=== PATIENT | male | born 1955 | race Caucasian/White ===

== ENCOUNTER 2016-06-20 11:26 | Outpatient (CLI) | payer MEDICARE, MEDICAID ==
[2014-06-20 09:07] VITALS: BMI 26.1
--- NOTE | ~2016-06-20 | HEMODYNAMI ---
PATIENT:DARYL SERRANO MEDICAL RECORD: [id number] : 57 LOCATION:[place] ADMISSION DATE: 06/20/16 Generatedon:06/20/201616:11 Patient name: DARYL SERRANO Patient #: [id number] SSN: : 1955 Date of study: 06/20/2016 Page: Of Hemodynamic Procedure Report Patient Data Patient Demographics Procedure consent was obtained First Name: DARYL Gender: Male Last Name: MAGGIE : 1955 [facility] Initial: R Age: 61 year(s) Patient #: [id number] Race: Additional ID: [id number] Contact details Address: [address] [place] [address] [address] State: [place] City: [place] Zip code: [address] Past Medical History Allergies Allergen Reaction Date Comments Reported Other allergy 06/13/2014 Albuterol, Codeine, Blueberry Codeine 06/20/2016 Admission Admission Data Admission Date: 06/20/2016 Admission Time: 11:26 Lab Results Lab Result Date: 06/20/2016 Lab Result Time: 11:50 Biochemistry Name Units Result Min Max BUN mg/dl 7 --(*---)-- 7 18 Creatinine mg/dl 0.9 --(-*--)-- 0.6 1.3 CBC Name Units Result Min Max Hematocrit % 45.4 --(-*--)-- 42 54 Hemoglobin g/dl 14.8 --(-*--)-- 13.5 17.5 Procedure Procedure Types Cath Procedure Diagnostic Procedure LHC LHC w/Coronaries w/Grafts PCI Procedure Coronary Stent Initial Miscellaneous Procedures Moderate Sedation up to 15 minutes Procedure Description Procedure Date Procedure Date: 06/20/2016 Procedure Start Time: 15:52 Procedure End Time: 16:10 Procedure Staff Name Function Jose Cao MD Performing Physician Jeri Juarez RT Scrub Niko Laird RN Nurse Jed Chamberlain RT Monitor Procedure Data Cath Procedure Fluoroscopy Diagnostic fluoroscopy Total fluoroscopy Time: 3.9 time: 3.9 min min Diagnostic fluoroscopy Total fluoroscopy dose: 808 dose: 808 mGy mGy Contrast Material Contrast Material Type Amount (ml) Isovue 300 160 Entry Location Entry Primary Successful Side Size Upsize Upsize Entry Closure Succes sful Closure Location (Fr) 1 (Fr) 2 (Fr) Remarks Device Remarks Femoral Right 5 Fr 6 Fr Exoseal artery Short Estimated blood loss: 10 ml Diagnostic catheters Device Type Used For End Catheter Placement Cordis 5Fr Pigtail Procedure Catheter (MP) Cordis 5Fr JL 4.0 Procedure Catheter (MP) Cordis 5Fr 3DRC Catheter Procedure (MP) Diagnostic Infinity 5Fr Procedure AR 2 MOD catheter Procedure Complications No complications Procedure Medications Medication Administration Route Dosage Oxygen NC 2 l/min Heparin Flush Bag added to field 2 bags (1000units/500ml NS) 0.9% NaCl I.V. 100 ml/hr Fentanyl I.V. 50 mcg Versed I.V. 1 mg Fentanyl I.V. 50 mcg Versed I.V. 1 mg Heparin Bolus I.V. 4000 units Hemodynamics Rest HGB: 14.8 (g/dl) Heart Rate: 67 (bpm) Snapshots Pre Cath Intra NCS Post Cath Vital Signs Time Heart Resp SPO2 NIBP Rhythm Pain Sedation Rate (ipm) (%) (mmHg) Status Level (bpm) 15:32:31 70 18 97 125/73(95) NSR 0 (11) 10(A) , No pain 15:36:43 63 19 96 101/65(73) NSR 0 (11) 10(A) , No pain 15:40:51 64 18 96 104/62(83) NSR 0 (11) 10(A) , No pain 15:45:03 63 18 96 93/59(72) NSR 0 (11) 10(A) , No pain 15:49:11 64 16 96 98/54(76) NSR 0 (11) 10(A) , No pain 15:53:19 74 17 95 97/60(74) NSR 0 (11) 9(A) , No pain 15:57:25 54 18 96 109/65(75) NSR 0 (11) 9(A) , No pain 16:01:39 63 17 95 100/57(80) NSR 0 (11) 9(A) , No pain 16:05:48 66 17 96 95/56(66) NSR 0 (11) 9(A) , No pain 16:09:56 66 18 96 103/61(73) NSR 0 (11) 9(A) , No pain Medications Time Medication Route Dose Verified Delivered Reason Notes Effectiveness by by 15:34:03 Oxygen NC 2 Niko Niko Per physician l/min Eitan Laird RN RN 15:34:12 Heparin Flush added 2 Niko Niko used for Bag to bags Eitan Laird RN procedure (1000units/500ml field RN NS) 15:34:26 0.9% NaCl I.V. 100 Niko Niko Per physician ml/hr Eitan Laird RN RN 15:51:11 Fentanyl I.V. 50 Niko Niko for sedation mcg Eitan Laird RN RN 15:51:17 Versed I.V. 1 mg Niko Niko for sedation Eitan aLird RN RN 16:00:38 Fentanyl I.V. 50 Niko Niko for sedation mcg Eitan Laird RN RN 16:00:40 Versed I.V. 1 mg Niko Niko for sedation Eitan Laird RN RN 16:00:48 Heparin Bolus I.V. 4000 Niko Niko for units Eitan Laird RN anticoagulation food scientist Log Time Note 15:11:54 Niko Laird RN sent for patient. Start room use. 15:28:00 Time tracking: Regular hours 15:28:04 Plan of Care:Hemodynamics will remain stable., Cardiac rhythm will remain stable., Comfort level will be maintained., Respiratory function will remain adequate., Patient/ family verbilizes understanding of procedure., Procedure tolerated without complication., Recovers from procedure without complications.. 15:28:13 Patient received from ED to CCL 2 Alert and oriented. Tansferred to table in Supine position. 15:28:14 Warm blankets applied, and jae hugger turned on for patient comfort. 15:28:14 Correct patient and procedure confirmed by team. 15:28:16 Signed procedure consent form obtained from patient. 15:28:17 ECG and BP/O2 sat monitors applied to patient. 15:28:18 Full Disclosure recording started 15:31:26 Vital chart was started 15:32:02 Rhythm: sinus rhythm 15:32:08 H&P Date Dictated: 06/20/2016 Emergent; H&P N/A. 15:32:09 Pre-procedure instructions explained to patient. 15:32:09 Pre-op teaching completed and patient verbalized understanding. 15:32:11 Family in waiting room. 15:32:12 Patient NPO since Midnight. 15:32:26 Patient allergic to Codeine 15:32:30 Is the patient allergic to Iodine/contrast media? No. 15:32:32 Is patient on blood thinner?Yes 15:32:35 ACC The patient was administered the following blood thiners within the last 24 hours: ACCPlavix 15:32:59 Loaded on Plavix at 1300 in ER. 15:33:03 Patient diabetic? No. 15:33:15 Previous problem with sedation/anesthesia? No ? 15:33:16 Snore? Yes 15:33:17 Sleep apnea? Yes 15:33:18 Deviated septum? No 15:33:19 Opens mouth fully? Yes 15:33:19 Sticks out tongue? Yes 15:33:23 Airway obstruction? Yes COPD 15:33:28 Dentures? No ? 15:33:39 Pre procedure: right dorsailis pedis pulse 1+ Palpable, but thready & weak; easily obliterated 15:33:42 Patient pain scale 0/10 ?. 15:33:44 Lab results completed and on chart. 15:33:47 Right groin area was prepped with chlora-prep and draped in sterile fashion 15:33:47 Alarms reviewed by R. N. 15:33:48 Sharps counted by scrub and verified by R.N. 15:33:53 Use device set Femoral Dx 15:33:54 Tegaderm 4 x 4 opened to sterile field. 15:33:55 Acist Hand Control opened to sterile field. 15:33:56 Acist Manifold opened to sterile field. 15:33:57 Acist Syringe opened to sterile field. 15:33:57 Bag Decanter opened to sterile field. 15:33:58 Medline Cath Pack opened to sterile field. 15:33:58 Terumo 5Fr [place] Sheath opened to sterile field. 15:33:59 St Dane 260cm J .035 wire opened to sterile field. 15:34:00 Diagnostic Infinity 5Fr Multipack catheter opened to sterile field. 15:34:03 Oxygen 2 l/min NC was administered by Niko Laird RN; Per physician; 15:34:12 Heparin Flush Bag (1000units/500ml NS) 2 bags added to field was administered by Niko Laird RN; used for procedure; 15:34:26 0.9% NaCl 100 ml/hr I.V. was administered by Niko Laird RN; Per physician; :: Lab Result : BUN 7 mg/dl :: Lab Result : Creatinine 0.9 mg/dl 15:: Lab Result : Hemoglobin 14.8 g/dl 15:: Lab Result : Hematocrit 45.4 % 15:42:24 Zero performed for pressure channel P1 15:43:07 Baseline sample Acquired. 15:50:27 --------ALL STOP TIME OUT------ 15:50:28 Final Timeout: patient, procedure, and site verified with staff and physician. All members of the team are in agreement. 15:50:30 Right groin site verified by team. 15:50:33 Physical assessment completed. ASA score P 2 - A patient with mild systemic disease as per Jose Cao MD. 15:50:36 Sedation plan: IV Moderate Sedation Versed, Fentanyl 15:51:11 Fentanyl 50 mcg I.V. was administered by Niko Laird RN; for sedation; 15:51:17 Versed 1 mg I.V. was administered by Niko Laird RN; for sedation; 15:52:15 Procedure started. 15:52:17 Local anesthetic to right femoral artery with Lidocaine 2% by Jose Cao MD.INITIAL ACCESS ONLY 15:52:26 A 5 Fr sheath was inserted into the Right Femoral artery 15:53:05 A Cordis 5Fr Pigtail Catheter (MP) was advanced over the wire and used for Procedure. 15:53:18 LV gram done using DAVIES 15:53:20 Injector settings: Ml/sec: 10, Volume: 20, 15:54:34 EF : 50 % 15:54:35 Catheter exchanged over wire. 15:54:40 A Cordis 5Fr JL 4.0 Catheter (MP) was advanced over the wire and used for Procedure. 15:55:12 LCA angiography performed. 15:55:38 Merit BasixCompak Inflation Kit opened to sterile field. 15:55:38 Terumo 6Fr [place] Sheath opened to sterile field. 15:55:39 Yen Whisper J 300cm 0.014 guide wire opened to sterile field. 15:55:44 Catheter removed. 15:55:47 A Cordis 5Fr 3DRC Catheter (MP) was advanced over the wire and used for Procedure. 15:56:48 JEONG to LAD angiography performed. 15:58:09 RCA angiography performed. 15:58:12 Catheter removed. 15:58:16 A Diagnostic Infinity 5Fr AR 2 MOD catheter was advanced over the wire and used for Procedure. 15:58:38 SVG to Circ angiography performed. 15:59:09 Catheter removed. 15:59:15 Cordis 6FR XBLAD 3.5 guide catheter opened to sterile field. 15:59:36 Sheath upsized to a 6 Fr Short. 15:59:56 6 Fr xblad 3.5 guide catheter was inserted over the wire 16:00:38 Fentanyl 50 mcg I.V. was administered by Niko Laird RN; for sedation; 16:00:40 Versed 1 mg I.V. was administered by Niko Laird RN; for sedation; 16:00:48 Heparin Bolus 4000 units I.V. was administered by Niko Laird RN; for anticoagulation; 16:01:09 whisper wire advanced. 16:02:24 Wire advanced across lesion. 16:02:40 Inflation Number: 1 A Medtronic Integrity 2.5 X 12 stent was prepped and advanced across the Mid LAD. The stent was deployed at 13 MICHAEL for 0:10 (min:sec). 16:03:18 Stent catheter was removed intact over wire. 16:03:19 Wire removed. 16:03:20 Guide catheter removed. 16:03:25 Cordis 6Fr Exoseal opened to sterile field. 16:03:37 Sheath removed intact; hemostasis achieved with Exoseal to the Right Femoral artery. 16:03:39 Procedure ended.(Physican Out) 16:04:47 Fluoroscopy time 03.90 minutes. 16:04:51 Flurop Dose total: 808 16:04:51 Fluoroscopy dose: 808 mGy 16:04:56 Contrast amount:Isovue 300 160ml. 16:04:57 Sharps counted by scrub and verified by R.N. 16:05:02 Insertion/operative site no bleeding no hematoma. 16:05:05 Post-op/insertion site Right Femoral artery dressed using a 4 x 4 and Tegaderm. 16:05:13 Post right femoral artery:stable, soft, clean and dry 16:05:18 Post Procedure Pulses reassessed and unchanged 16:05:21 Post-procedure physical assessment completed. ASA score P 2 - A patient with mild systemic disease as per Jose Cao MD. 16:05:23 Post procedure rhythm: unchanged. 16:05:26 Estimated blood loss: 10 ml 16:05:27 Post procedure instruction explained to patient.Patient verbalizes understanding. 16:05:35 Patient needs reinforcement of post procedure teaching. 16:05:47 Procedure type changed to Cath procedure, Diagnostic procedure, LHC, LHC w/Coronaries w/Grafts, PCI procedure, Coronary Stent Initial, Miscellaneous Procedures, Moderate Sedation up to 15 minutes 16:10:26 Procedure and supply charges have been captured, reviewed, submitted and are correct. 16:10:28 Procedure Complication : No complications 16:10:30 Vital chart was stopped 16:10:31 See physician's report for complete and final results. 16:10:31 See physician's report for complete and final results. 16:10:32 Report given to Pre/Post Procedure Room. 16:10:35 Patient transfered to Pre/Post Procedure Room with Stretcher. 16:10:37 Procedure ended. 16:10:37 Full Disclosure recording stopped 16:11:06 End room use (Document Last) Intervention Summary Intervention Notes Time ActionType Lesion and Equipment Action# Pressure Duration Attributes Used 16:02:40 Place stent Mid LAD Medtronic 1 13 00:10 Integrity 2.5 X 12 stent Device Usage Item Name Manufacture Quantity Catalog Hospital Part Current Minimal L ot# / Number Charge Number Stock Stock Serial# Code Tegaderm 4 1 1626W 225044 293167 323549 5 x 4 Acist Hand Acist 1 23851 872512 155684 663400 5 Control Medical Systems Inc Acist Acist 1 81250 202777 182251 785042 5 Manifold Medical Systems Inc Acist Acist 1 67140 483239 598006 782763 20 Syringe Medical Systems Inc Bag Microtek 1 2001S 104637 46500 173211 5 QR Artist. Medline Cardinal 1 [id number] 165416 01793 150203 5 Cath Pack Health Terumo 5Fr Terumo 1 [id number] 847617 714436 317748 [address] Dane 1 488703 353197 781431 841799 30 260cm J .035 wire Diagnostic Cardinal 1 TX5168 779431 18029 749682 30 Infinity Health 5Fr Multipack catheter Cordis 5Fr Cardinal 1 871900 5 Pigtail Health Catheter (MP) Cordis 5Fr Cardinal 1 814975 5 JL 4.0 Health Catheter (MP) Merit [facility] 1 TO9902 481180 171446 604265 15 BasixUnified Medical Inflation Kit Terumo 6Fr Terumo 1 [id number] 510617 406773 761474 40 [place] Sheath Yen Yen 1 [id number] 600122 301849 540532 5 Whisper J Vascular 300cm 0.014 guide wire Cordis 5Fr Cardinal 1 108072 5 3DRC Health Catheter (MP) Diagnostic Cardinal 1 [id number] 843087 745691 350029 20 Infinity Health 5Fr AR 2 MOD catheter Cordis 6FR Cardinal 1 [id number] 464171 032774 731254 10 XBLAD 3.5 Health guide catheter Medtronic Medtronic 1 [id number] 397051 770460 749999 3 0 [id number] Integrity 2.5 X 12 stent Cordis 6Fr Cardinal 1 EX600 523584 906406 026174 10 [facility] Teamly Signature Audit [place] Stage Time Signature Unsigned Intra-Procedure 06/20/2016 Jed Chamberlain 4:11:18 PM RT(R) Signatures Monitor : Jed Chamberlain RT Signature : Date : Time : [facility] [address] [place] [address]
[~2016-06-20 11:26] MED LIST: ASPIRIN325 MG PO; ASPIRIN81 MG PO; BETAPACE 120 M120 MG PO; CALCIUM 600+D T1 TA1 PO; CORDARONE200 MG PO; CRESTOR10 MG PO; FLOMAX0.4 MG PO; K-DUR20 MEQ PO; LASIX40 MG PO; LITHIUM CARBON300 MG PO; LOPRESSOR25 MG PO; MULTI-DAY VITAM1 TAB PO; NORCO 10/325 TA1 TA1 PO; PLAVIX75 MG PO; PROAIR HFA8.5 GM INH; RISPERDAL2 MG PO; SYMBICORT 16010.2 GM INH
[2016-06-20 12:11] LABS: BASOPHILS 0.1 % (0-2); EOSINOPHILS 2.5 % (0-7); HEMATOCRIT 45.4 % (42.0-54.0); HEMOGLOBIN 14.8 g/dL (13.5-17.5); IMMATURE GRANULOCYTES 0.1 % (0-5); LYMPHOCYTES 11.6 % (15-50); MCH 29.8 pg (26.0-34.0); MCHC 32.6 g/dL (31.0-37.0); MCV 91.3 fL (80.0-100.0); MEAN PLATELET VOLUME 11.5 fL (7.4-10.4); MONOCYTES 8.4 % (2-11); NEUTROPHILS 77.3 % (40-80); PLATELET COUNT 164 10x3/uL (130-400); RBC 4.97 10x6/uL (4.20-6.10); RDW 13.7 % (11.5-14.5); WBC 13.5 10x3/uL (4.8-10.8)
[2016-06-20 12:21] LABS: ALBUMIN 3.6 g/dL (3.4-5.0); ALKALINE PHOSPHATASE 81 U/L (46-116); ALT (SGPT) 24 U/L (10-68); BILIRUBIN - TOTAL 0.59 mg/dL (0.2-1.3); CALC OSMOLALITY 275 mosm/kg (275-300); CALCIUM 9.8 mg/dL (8.5-10.1); CARBON DIOXIDE 30.7 mmol/L (21.0-32.0); CHLORIDE - SERUM 105 mmol/L (98-107); CREATININE - SERUM 0.9 mg/dL (0.6-1.3); GLUCOSE 102 mg/dL (74-106); POTASSIUM - SERUM 4.1 mmol/L (3.5-5.1); PROTEIN - SERUM 7.5 g/dL (6.4-8.2); SODIUM 139 mmol/L (136-145); UREA NITROGEN 7 mg/dL (7-18); eGFR NON AFRICAN AMERICAN > 90 mL/min (90-120)
[2016-06-20 12:35] LABS: CHOL - HDL RATIO 2.7 ratio (2.3-4.9); CHOLESTEROL, TOTAL 116 mg/dL (0-200); CKMB 0.4 U/L (0.0-3.6); CREATINE KINASE 52 UL (21-232); HDL CHOLESTEROL 43 mg/dL (32-96); LDL CHOLESTEROL 43 mg/dL (0-100); TRIGLYCERIDE 150 mg/dL (30-200)
[2016-06-20 12:36] LABS: TROPONIN-I < 0.017 ng/mL (0.000-0.060)
--- NOTE | 2016-06-20 16:30 | NUR ---
resting, right groin cdi, no hematoma or bleeding noted, soft to touch
--- NOTE | 2016-06-20 17:00 | NUR ---
no change in right groin, vss, alone at this time, urinal used-200cc out. denies furthur needs
--- NOTE | 2016-06-20 19:50 | NUR ---
IV D'C WITH CATH TIP INTACT, WRITTEN AND VERBAL INSTRUCTIONS GIVEN TO PT. DENIES PAIN AT THIS TIME. AWAITING PARENTS TO DRIVE HOME.
--- NOTE | 2016-06-20 20:00 | NUR ---
PARENTS AT FRONT DOOR-TRANSPORT VIA WC TO CAR, D'C INSTRUCTIONS GIVEN TO PARENTS AND INFORMED ALL OF IMPORTANCE OF GETTING PLAVIX RX FILLED AND START TOMORROW. VERBAL UNDERSTANDING NOTED
--- NOTE | 2016-06-21 16:36 | OP ---
PATIENT NAME: DARYL SERRANO MEDICAL RECORD: [id number] :57 LOCATION:D.CAT ADMISSION DATE: SURGEON: MAKAYLA SWAN MD DATE OF OPERATION: 06/20/2016 PROCEDURES: 1. PTCA stent LAD. 2. Left heart catheterization. 3. Selective coronary angiography. 4. Vein graft angiography. 5. Left ventriculogram. INDICATIONS: Angina and coronary artery disease. PROCEDURE IN DETAIL: After informed consent was obtained and after a detailed explanation of the risks, benefits as well as alternative therapies, the patient elected to proceed with angiogram and angioplasty. The right femoral area was prepped and draped in normal sterile fashion. The right femoral artery was cannulated via modified Seldinger technique with placement of 6-Ecuadorean sheath. All catheters exchanged through this sheath. FINDINGS: The left ventriculogram was performed in standard 30-degree DAVIES view, reveals good cardiac wall motion throughout all segments. Overall ejection fraction 50%. SELECTIVE CORONARY ANGIOGRAPHY: 1. Left main showed no significant angiographic disease. 2. Left anterior descending has previously placed stents, these are widely patent; however, there is a 70%-75% stenosis in the distal vessel. 3. JEONG to the LAD is closed. 4. Left circumflex has 80% stenosis in the proximal vessel. 5. Vein graft to the circumflex is widely patent. 6. The right coronary has previously placed stents; these are widely patent with no significant restenosis. No disease elsewise. 7. The vein graft to the RCA is closed. PTCA STENT OF THE MORON[place] LAD: The stent used was a 2.5 x 12 mm Integrity. Result was 0% residual stenosis. OVERALL IMPRESSION: Successful percutaneous transluminal coronary angioplasty stent of the left anterior descending going from 70%-75% initial stenosis to 0% residual. TRANSINT:[id number] Voice Confirmation ID: [id number] DOCUMENT ID: [id number] MAKAYLA SWAN MD at 1636 CC: [id number] DICTATION DATE: 06/20/16 1607 PANEL SEWER: 06/21/16 0100 DEP CLI 06/20/16 [place] [address]
== END 2016-06-20 20:00 | disposition home or self-care (01) ==
LOC: D.ER 11:26 → D.CATH 11:26 → EDSTATUS 13:00 → D.CATH 20:00
PROVIDERS: Emergency Medicine
DX: I25.119 Atherosclerotic heart disease of native coronary artery with unspecified angina pectoris (principal); Z01.812 Encounter for preprocedural laboratory examination; R94.31 Abnormal electrocardiogram [ECG] [EKG]

== ENCOUNTER → 2016-09-11 19:02 | Outpatient (CLI) | payer MEDICARE, MEDICAID ==
[2014-06-20 09:07] VITALS: BMI 26.1
== END | disposition home or self-care (01) ==
LOC: D.SLEEP 08:00
DX: G47.33 Obstructive sleep apnea (adult) (pediatric) (principal)

== ENCOUNTER 2016-11-02 10:08 | Observation (INO) | payer MEDICARE, MEDICAID ==
[~2016-11-02] VITALS: Ht 185.4 cm; Wt 88.6 kg
--- NOTE | ~2016-11-02 | OP ---
PATIENT NAME: DARYL SERRANO MEDICAL RECORD: [id number] :57 LOCATION:D. D.2123 ADMISSION DATE:11/02/16 SURGEON: JOSE R VELEZ MD DATE OF OPERATION: 11/03/2016 PROCEDURE: Left heart catheterization, selective coronary angiography, right femoral approach. CATHETERS: A 5-Portuguese sheath, 5/4 left and right Shira, 5/4 pig. The procedure was well tolerated and the patient returned to the cosby. Sheath removed. ExoSeal device was placed. FINDINGS: Left ventriculography in 30-degree DAVIES view, normal wall motion and normal systolic function. CORONARY ANATOMY. LEFT MAIN: Left main is free of disease. LAD: LAD has an area of previous stenting, widely patent throughout its course with no progression of togiak disease. CIRCUMFLEX: Circumflex is totally occluded in its distal portion. RIGHT CORONARY ARTERY: Right coronary artery has area of previous stenting, widely patent without evidence of restenosis or progression of togiak disease. SAPHENOUS VEIN GRAFT: Saphenous vein graft to the circ is widely patent. It fills the AV groove, circ in retrograde fashion as well. IMPRESSION: Suspect chest pain due to chronic obstructive pulmonary disease exacerbation, this has indicated. TRANSINT:[id number] Voice Confirmation ID: [id number] DOCUMENT ID: [id number] JOSE R VELEZ MD CC: [id number] DICTATION DATE: 11/03/16 1022 IMPORT CLERK: 11/03/16 1306 ADM IN [facility] [address] [place] [address]
--- NOTE | ~2016-11-02 | HEMODYNAMI ---
PATIENT:DARYL SERRANO MEDICAL RECORD: [id number] : 57 [id number] ADMISSION DATE: 11/02/16 Generatedon:11/03/201610:21 Patient name: DARYL SERRANO Patient #: [id number] SSN: : 1955 Date of study: 11/03/2016 Page: Of Hemodynamic Procedure Report Patient Data Patient Demographics Procedure consent was obtained First Name: DARYL Gender: Male Last Name: MAGGIE : 1955 Middle Initial: R Age: 61 year(s) Patient #: [id number] Race: Additional ID: [id number] Contact details [address]: [address] [place] [address] [address] State: [place] City: [place] Zip code: [address] Past Medical History Allergies Allergen Reaction Date Comments Reported Other allergy 06/13/2014 Albuterol, Codeine, Blueberry Codeine 06/20/2016 Other allergy 11/03/2016 albuterol Codeine 11/03/2016 Admission Admission Data Admission Date: 11/02/2016 Admission Time: 12:35 Room #: D.2123 Procedure Procedure Types Cath Procedure Diagnostic Procedure LHC LHC w/Coronaries w/Grafts Miscellaneous Procedures Moderate Sedation up to 15 minutes Procedure Description Procedure Date Procedure Date: 11/03/2016 Procedure Start Time: 10:10 Procedure End Time: 10:20 Procedure Staff Name Function Robin Gale MD Performing Physician Misty Pinedo RT Scrub Prosper Urena RN Nurse Jeri Juarez RT Monitor Procedure Data Cath Procedure Fluoroscopy Diagnostic fluoroscopy Total fluoroscopy Time: 1.3 time: 1.3 min min Diagnostic fluoroscopy Total fluoroscopy dose: 506 dose: 506 mGy mGy Contrast Material Contrast Material Type Amount (ml) Isovue 300 54 Entry Location Entry Primary Successful Side Size Upsize Upsize Entry Closure Succes sful Closure Location (Fr) 1 (Fr) 2 (Fr) Remarks Device Remarks Femoral Right 5 Fr Exoseal artery Estimated blood loss: 5 ml Diagnostic catheters Device Type Used For End Catheter Placement Cordis 5Fr JL 4.0 Left Coronary Catheter (MP) Angiography Cordis 5Fr 3DRC Catheter Right Coronary (MP) Angiography Cordis 5Fr 3DRC Catheter SVG Angiography (MP) Cordis 5Fr Pigtail LV Angiography Catheter (MP) Procedure Complications No complications Procedure Medications Medication Administration Route Dosage Oxygen NC 2 l/min Lidocaine 2% added to field 20 Heparin Flush Bag added to field 2 bags (1000units/500ml NS) 0.9% NaCl I.V. 100 ml/hr Versed I.V. 1 mg Fentanyl I.V. 50 mcg Versed I.V. 1 mg Fentanyl I.V. 50 mcg Solumedrol I.V. 125 mg Hemodynamics Rest Heart Rate: 52 (bpm) Pressure Samples Time Site Value (mmHg) Purpose Heart Use Rate(bpm) 10:15 LV 80/2,9 EDP 59 Gradients Valve Time Site Site Mean SEP/DFP Peak To Heart Use 1 2 (mmHg) (sec/min) Peak Rate (mmHg) (bpm) Aortic 10:16 LV AO 53 Snapshots Pre Cath Intra NCS Post Cath Vital Signs Time Heart Resp SPO2 etCO2 [id number] NIBP Rhythm Pain Sedation Rate (ipm) (%) (mmHg) (mmHg) (mmHg) Status Level (bpm) 9:57:20 47 15 98 0 0 111/62(91) NSR 0 (11) 10(A) , No pain 10:02:04 51 13 97 0 0 97/57(73) NSR 0 (11) 10(A) , No pain 10:06:47 48 15 97 0 0 101/57(78) NSR 0 (11) 10(A) , No pain 10:11:32 48 15 97 0 0 105/54(83) NSR 0 (11) 9(A) , No pain 10:16:12 54 16 96 0 0 87/54(71) NSR 0 (11) 9(A) , No pain 10:20:51 55 15 96 0 0 101/57(69) NSR 0 (11) 10(A) , No pain Medications Time Medication Route Dose Verified Delivered Reason Notes Effe ctiveness by by 9:58:35 Oxygen NC 2 Robin Cheng used for l/min St. Keanu Urena RN procedure 9:59:32 Lidocaine 2% added 20ml Robin Robin for local to vial St. Keanu Gale anesthetic field MD ACKERMAN 9:59:39 Heparin Flush added 2 Robin Buffie used for Bag to bags St. Keanu Urena straightening press operator (1000units/500ml field ACKERMAN NS) 9:59:50 0.9% NaCl I.V. 100 Robin Cheng Per ml/hr St. Keanu Urena RN physician 10:06:41 Versed I.V. 1 mg Robin Hiltonie for [facility]. Keanu Urena RN sedation 10:06:46 Fentanyl I.V. 50 Robin Lidaie for mcg [facility] Keanu Urena RN sedation 10:10:43 Versed I.V. 1 mg Robin [address]ie for [facility]. Keanu Urena RN sedation 10:10:47 Fentanyl I.V. 50 Robin Hiltonie for mcg [facility]. Keanu Urena RN sedation 10:17:47 Solumedrol I.V. 125 Robin Cheng Per mg [facility]. Keanu Urena RN physician Procedure Log Time Note 9:46:44 Diagnostic Cath status Elective 9:46:46 Prosper Urena RN sent for patient. Start room use. 9:55:49 Time tracking: Call back 9:55:58 Plan of Care:Hemodynamics will remain stable., Cardiac rhythm will remain stable., Comfort level will be maintained., Respiratory function will remain adequate., Patient/ family verbilizes understanding of procedure., Procedure tolerated without complication., Recovers from procedure without complications.. 9:56:06 Patient received from PCU to CCL 1 Alert and oriented. Tansferred to table in Supine position. 9:56:07 Warm blankets applied, and jae hugger turned on for patient comfort. 9:56:10 Correct patient and procedure confirmed by team. 9:56:11 Signed procedure consent form obtained from patient. 9:56:12 ECG and BP/O2 sat monitors applied to patient. 9:56:12 Full Disclosure recording started 9:56:20 Vital chart was started 9:58:31 Baseline sample Acquired. 9:58:35 Oxygen 2 l/min NC was administered by Prosper Urena RN; used for procedure; 9:58:35 Rhythm: sinus bradycardia 9:58:42 H&P Date Dictated: 11/03/2016 Within 30 days and on chart.. 9:58:44 Pre-procedure instructions explained to patient. 9:58:44 Pre-op teaching completed and patient verbalized understanding. 9:58:47 Family in patients room. 9:58:49 Patient NPO since Midnight. 9:59:06 Patient allergic to Other allergyalbuterol 9:59:09 Patient allergic to Codeine 9:59:13 Is the patient allergic to Iodine/contrast media? No. 9:59:20 Is patient on blood thinner?No 9:59:25 Patient diabetic? No. 9:59:29 Previous problem with sedation/anesthesia? No ? 9:59:30 Snore? Yes 9:59:32 Lidocaine 2% 20ml vial added to field was administered by Robin Gale MD; for local anesthetic; 9:59:32 Sleep apnea? Yes 9:59:33 Deviated septum? No 9:59:34 Opens mouth fully? Yes 9:59:35 Sticks out tongue? Yes 9:59:39 Heparin Flush Bag (1000units/500ml NS) 2 bags added to field was administered by Prosper Urena RN; used for procedure; 9:59:40 Airway obstruction? Yes COPD 9:59:46 Dentures? Yes In 9:59:49 Pre procedure: right dorsailis pedis pulse 2+ Normal; easily identifiable; not easily obliterated 9:59:50 0.9% NaCl 100 ml/hr I.V. was administered by Prosper Urena RN; Per physician; 9:59:50 Patient pain scale 0/10 ?. 9:59:57 IV patent on arrival in left forearm with 0.9% NaCl at [facility]. 10:00:05 Lab results completed and on chart. 10:00:07 Right groin area was prepped with chlora-prep and draped in sterile fashion 10:00:08 Alarms reviewed by R. N. 10:00:09 Sharps counted by scrub and verified by R.N. 10:00:13 Use device set Femoral Dx 10:00:14 Acist Syringe opened to sterile field. 10:00:14 Bag Decanter opened to sterile field. 10:00:15 Medline Cath Pack opened to sterile field. 10:00:15 Terumo 5Fr Lodge Grass Sheath opened to sterile field. 10:00:15 St Dane 260cm J .035 wire opened to sterile field. 10:00:16 Acist Hand Control opened to sterile field. 10:00:17 Acist Manifold opened to sterile field. 10:00:17 Diagnostic Infinity 5Fr Multipack catheter opened to sterile field. 10:00:17 Tegaderm 4 x 4 opened to sterile field. 10:06:21 Final Timeout: patient, procedure, and site verified with staff and physician. All members of the team are in agreement. 10:06:23 Right groin site verified by team. 10:06:25 Physical assessment completed. ASA score P 2 - A patient with mild systemic disease as per Robin Gale MD. 10:06:28 Sedation plan: IV Moderate Sedation Versed, Fentanyl 10:06:41 Versed 1 mg I.V. was administered by Prosper Urena RN; for sedation; 10:06:46 Fentanyl 50 mcg I.V. was administered by Prosper Urena RN; for sedation; 10:10:17 Zero performed for pressure channel P1 10:10:22 Procedure started. 10:10:25 Local anesthetic to right femoral artery with Lidocaine 2% by Robin Gale MD.INITIAL ACCESS ONLY 10:10:32 A 5 Fr sheath was inserted into the Right Femoral artery 10:10:43 Versed 1 mg I.V. was administered by Prosper Urena RN; for sedation; 10:10:47 Fentanyl 50 mcg I.V. was administered by Prosper Urena RN; for sedation; 10:11:07 A Cordis 5Fr JL 4.0 Catheter (MP) was advanced over the wire and used for Left Coronary Angiography. 10:12:45 Catheter removed. 10:12:51 A Cordis 5Fr 3DRC Catheter (MP) was advanced over the wire and used for Right Coronary Angiography. 10:14:15 A Cordis 5Fr 3DRC Catheter (MP) was advanced over the wire and used for SVG Angiography.to CIRC 10:14:17 Catheter removed. 10:15:06 A Cordis 5Fr Pigtail Catheter (MP) was advanced over the wire and used for LV Angiography. 10:15:41 LV gram done using DAVIES 10:15:42 LV hemodynamics recorded. 10:15:45 Injector settings: Ml/sec: 7, Volume: 15, 10:15:51 EF : 55 % 10:16:06 Catheter removed. 10:16:12 Cordis 5Fr Exoseal opened to sterile field. 10:16:23 Sheath removed intact; hemostasis achieved with Exoseal to the Right Femoral artery. 10:16:25 Procedure ended.(Physican Out) 10:16:33 Fluoroscopy time 01.30 minutes. 10:16:36 Flurop Dose total: 506 10:16:36 Fluoroscopy dose: 506 mGy 10:16:39 Contrast amount:Isovue 300 54ml. 10:16:40 Sharps counted by scrub and verified by R.N. 10:16:41 Insertion/operative site no bleeding no hematoma. 10:16:45 Post-op/insertion site Right Femoral artery dressed using a 4 x 4 and Tegaderm. 10:16:48 Post right femoral artery:stable, clean and dry 10:16:51 Post Procedure Pulses reassessed and unchanged 10:16:55 Post-procedure physical assessment completed. ASA score P 2 - A patient with mild systemic disease as per Robin Gale MD. 10:16:57 Post procedure rhythm: unchanged. 10:17:01 Estimated blood loss: 5 ml 10:17:02 Post procedure instruction explained to patient.Patient verbalizes understanding. 10:17:02 Patient needs reinforcement of post procedure teaching. 10:17:17 Procedure type changed to Cath procedure, Diagnostic procedure, LHC, LHC w/Coronaries w/Grafts, Miscellaneous Procedures, Moderate Sedation up to 15 minutes 10:17:23 Procedure Complication : No complications 10:17:24 Procedure and supply charges have been captured, reviewed, submitted and are correct. 10:17:26 See physician's report for complete and final results. 10:17:47 Solumedrol 125 mg I.V. was administered by Prosper Urena RN; Per physician; 10:20:18 Report given to PCU. 10:20:19 Vital chart was stopped 10:20:26 Patient transfered to PCU with Bed. 10:20:28 Procedure ended. 10:20:28 Full Disclosure recording stopped 10:20:31 End room use (Document Last) Device Usage Item Name Manufacture Quantity Catalog Hospital Part Current Minimal Lo t# / Number Charge Number Stock Stock Serial# Code Acist Acist 1 41539 [id number] [id number] [id number] 20 Syringe [employer] Inc Bag Microtek 1 2002S 857800 99967 514045 5 Open [employer] Inc. Medline Cardinal 1 [id number] 349001 04350 994229 5 Cath Pack Health Terumo 5Fr Terumo 1 HAL269 296357 966813 630077 [address] St Dane 1 164507 351084 237801 385169 30 260cm J .035 wire Acist Hand Acist 1 91934 266299 758447 539149 5 Control Medical [employer] Inc Acist Acist 1 45983 480312 727484 731282 5 Manifold Medical Systems Inc Diagnostic Cardinal 1 [id number] 988770 42666 746870 30 Infinity Health 5Fr Multipack catheter Tegaderm 4 3M 1 1626W 176251 335841 628520 5 x 4 Cordis 5Fr Cardinal 1 607898 5 JL 4.0 Health Catheter (MP) Cordis 5Fr Cardinal 1 018963 5 3DRC Health Catheter (MP) Cordis 5Fr Cardinal 1 952475 5 Pigtail Health Catheter (MP) Cordis 5Fr Cardinal 1 EX500 785237 433548 174135 10 [facility] BIXI Signature Audit [place] Stage Time Signature Unsigned Intra-Procedure 11/03/2016 Jeri 10:21:46 AM Counts RT(R) Signatures Monitor : Jeri Signature : Counts RT Date : Time : [place] [id number] [facility] [place] [address]
--- NOTE | ~2016-11-02 | HP ---
PATIENT: DARYL SERRANO MEDICAL RECORD: [id number] ACCOUNT: [id number] LOCATION:[address] : 57 ADMISSION DATE: 11/02/16 HISTORY AND PHYSICAL EXAMINATION HISTORY OF PRESENT ILLNESS: A 61-year-old gentleman with known history of coronary artery disease, status post coronary bypass grafting, he has history of most recently in June of this year stenting to the [place] LAD, admitted with chest pain over the past 2 days. Additionally, he has had some worsening of his underlying obstructive pulmonary disease, questionable was more of a strain or true restenosis or progression of [place] disease. We were asked to see him concerning his cardiovascular status. PAST MEDICAL HISTORY: Includes: 1. History of hypertension. 2. Obstructive pulmonary disease. 3. Coronary artery disease as described above. 4. Dyslipidemia. 5. Paroxysmal atrial fibrillation. 6. Bipolar disorder. 7. Hypothyroidism on replacement. ALLERGIES: CODEINE AND ALBUTEROL. MEDICATIONS: Include Synthroid 100 mcg q. day, Singulair 10 q.h.s., Symbicort 1 puff b.i.d., Risperdal 2 mg b.i.d., lithium 450 b.i.d., aspirin 81 q. day, sotalol 120 b.i.d., Crestor 10 q. day, Ranexa 1 gram b.i.d., and albuterol q.6. SOCIAL HISTORY: He lives currently independently. He is a nonsmoker, nondrinker. He is able to take care of his ADLs. No set exercise program. . REVIEW OF SYSTEMS: The patient reports easy bruising but reports no swollen glands. The patient reports no fever, no night sweats, no significant weight gain, no significant weight loss. No significant exercise tolerance. The patient reports no dry eyes, no irritation, no vision change. Patient reports no difficulty hearing and no ear pain. Patient reports no frequent nose bleeds or nose and sinus problems. Patient reports on arm pain on exertion. No shortness of breath while lying down. No history of heart murmur. Patient reports no cough, no wheezing or coughing up blood. Patient reports no abdominal pain, no vomiting. Normal appetite. No diarrhea and not vomiting blood. No nausea and no constipation. Patient reports no incontinence. No difficulty urinating. No hematuria. No increased frequency. Patient reports no muscle aches. No weakness, no arthralgias, no back pain. No swelling of the extremities. Patient reports no abnormal mole, no jaundice, no rashes. Reports no loss of consciousness. No weakness and no numbness. No seizures, dizziness, or headaches. The patient reports no depression, no sleep disturbance, feeling safe in a relationship and no alcohol abuse. Patient reports on fatigue. Reports no runny nose or sinus pressure. No itching, no hives, and no frequent sneezing. PHYSICAL EXAMINATION: VITAL SIGNS: Blood pressure 130/60, pulse 57 and regular. HEENT: Normocephalic, atraumatic. NECK: No JVD or bruit. HEART: Regular, occasional extrasystole, II/ systolic ejection murmur. HISTORY AND PHYSICAL [id number] MOLES,DARYL R LUNGS: Good air excursion. ABDOMEN: Soft, nontender. EXTREMITIES: Pulses 2+ with no edema. DIAGNOSTIC DATA: ECG shows minor nonspecific ST-T changes. IMPRESSION: Questionable demand ischemia, certainly within window restenosis only 4 months out. PLAN: For diagnostic angiography, intervention based on above. TRANSINT:[id number] Voice Confirmation ID: [id number] DOCUMENT ID: [id number] JOSE R VELEZ MD CC: [id number] DICTATION DATE: 11/03/16840 CELL STRIPPER: 11/03/16 1035 ADM IN [place] [id number] [place] [id number]
[2016-11-02 10:52] LABS: BASOPHILS 0.2 % (0-2); EOSINOPHILS 3.9 % (0-7); HEMATOCRIT 41.5 % (42.0-54.0); HEMOGLOBIN 14.1 g/dL (13.5-17.5); IMMATURE GRANULOCYTES 0.2 % (0-5); LYMPHOCYTES 14.9 % (15-50); MCH 30.5 pg (26.0-34.0); MCV 89.6 fL (80.0-100.0); MEAN PLATELET VOLUME 10.9 fL (7.4-10.4); MONOCYTES 6.7 % (2-11); NEUTROPHILS 74.1 % (40-80); PLATELET COUNT 149 10x3/uL (130-400); RBC 4.63 10x6/uL (4.20-6.10); RDW 13.5 % (11.5-14.5); WBC 10.2 10x3/uL (4.8-10.8)
[2016-11-02 11:09] LABS: ALBUMIN 3.6 g/dL (3.4-5.0); ALKALINE PHOSPHATASE 60 U/L (46-116); ALT (SGPT) 19 U/L (10-68); BILIRUBIN - TOTAL 0.56 mg/dL (0.2-1.3); CALC OSMOLALITY 275 mosm/kg (275-300); CALCIUM 9.2 mg/dL (8.5-10.1); CARBON DIOXIDE 27.4 mmol/L (21.0-32.0); CHLORIDE - SERUM 106 mmol/L (98-107); CREATININE - SERUM 1.2 mg/dL (0.6-1.3); GLUCOSE 115 mg/dL (74-106); PROTEIN - SERUM 6.9 g/dL (6.4-8.2); SODIUM 138 mmol/L (136-145); UREA NITROGEN 11 mg/dL (7-18); eGFR NON AFRICAN AMERICAN 66 mL/min (90-120)
[2016-11-02 11:26] LABS: CHOL - HDL RATIO 3.2 ratio (2.3-4.9); CHOLESTEROL, TOTAL 129 mg/dL (0-200); CREATINE KINASE 37 UL (21-232); HDL CHOLESTEROL 41 mg/dL (32-96); LDL CHOLESTEROL 63 mg/dL (0-100); LDL-HDL RATIO 1.5 ratio (1.5-3.5); TRIGLYCERIDE 127 mg/dL (30-200); TROPONIN-I < 0.017 ng/mL (0.000-0.060)
--- NOTE | 2016-11-02 13:29 | NUR ---
PT TO ROOM FROM ER. ALERT AND ORIENTED WILL ADMIT FAMILY AT BEDSIDE
[2016-11-02] MEDS ORDERED: RANEXA1000 MG PO (13:35)
[2016-11-02] MEDS ORDERED: SINGULAIR10 MG PO (13:36)
[2016-11-02] MEDS ORDERED: SYNTHROID100 MCG PO (13:37)
[2016-11-02 13:38] VITALS: BP 130/63; Ht 185.4 cm; Wt 88.6 kg
[2016-11-02 18:50] LABS: CKMB 0.1 U/L (0.0-3.6); CREATINE KINASE 32 UL (21-232)
[2016-11-02 18:52] LABS: TROPONIN-I < 0.017 ng/mL (0.000-0.060)
--- NOTE | 2016-11-02 19:59 | NUR ---
DR. VELEZ CALLED A SHIFT CHANGE REGARDING MEDS. NEW ORDERS RECIEVED AND NOTED, ASSESSMENT COMPLETED AT 1945 HRS. SR PER CM HR 69. IV TO LFA SL. LUNGS WITH INSP WHEEZE TO UPPER R LOBE. PT SLOW TO RESPOND. INFORMED NPO AFTER MIDNIGHT FOR POTENTIAL AM LFC. WILL CONTINUE TO MONITOR. SR UP X2, CALL LIGHT WITHIN REACH.
[2016-11-02 20:32] VITALS: BP 109/57
--- NOTE | 2016-11-02 23:12 | NUR ---
PM MEDS GIVEN. PT DENIED ANY DISCOMFORT. PT CURRETNLY RESTING WITH EYES CLOSED. RESP EVEN AND REGULAR. SR UP X2, CALL LIGHT WITHIN REACH.
--- NOTE | 2016-11-03 00:55 | NUR ---
VSS. SB PER CM. PT DENIES ANY DISCOMFORT. EKG DONE. WILL CONTINUE TO MONITOR.
[2016-11-03 01:18] VITALS: BP 101/51
[2016-11-03 01:23] LABS: CKMB 0.1 U/L (0.0-3.6); CREATINE KINASE 32 UL (21-232)
[2016-11-03 01:25] LABS: TROPONIN-I < 0.017 ng/mL (0.000-0.060)
--- NOTE | 2016-11-03 02:21 | NUR ---
PT RESTING WITH EYES CLOSED. RESP EVEN AND REGULAR. SR UP X2, CALL LIGHT WITHIN REACH.
--- NOTE | 2016-11-03 04:24 | NUR ---
PT RESTING WITH EYES CLOSED. RESP EVEN AND REGULAR. SR UP X2, CALL LIGHT WITHIN REACH.
[2016-11-03 05:25] LABS: BASOPHILS 0.1 % (0-2); EOSINOPHILS 4.9 % (0-7); HEMATOCRIT 38.7 % (42.0-54.0); IMMATURE GRANULOCYTES 0.2 % (0-5); LYMPHOCYTES 20.1 % (15-50); MCH 30.2 pg (26.0-34.0); MCHC 33.6 g/dL (31.0-37.0); MCV 89.8 fL (80.0-100.0); MEAN PLATELET VOLUME 11.3 fL (7.4-10.4); MONOCYTES 7.9 % (2-11); NEUTROPHILS 66.8 % (40-80); PLATELET COUNT 141 10x3/uL (130-400); RBC 4.31 10x6/uL (4.20-6.10); RDW 13.7 % (11.5-14.5); WBC 9.8 10x3/uL (4.8-10.8)
[2016-11-03 05:48] LABS: CALCIUM 8.5 mg/dL (8.5-10.1); CARBON DIOXIDE 26.3 mmol/L (21.0-32.0); CHLORIDE - SERUM 107 mmol/L (98-107); CKMB 0.1 U/L (0.0-3.6); CREATINE KINASE 35 UL (21-232); CREATININE - SERUM 1.2 mg/dL (0.6-1.3); GLUCOSE 101 mg/dL (74-106); POTASSIUM - SERUM 3.8 mmol/L (3.5-5.1); SODIUM 138 mmol/L (136-145); eGFR NON AFRICAN AMERICAN 66 mL/min (90-120)
[2016-11-03 05:50] LABS: CALC OSMOLALITY 273 mosm/kg (275-300); TROPONIN-I < 0.017 ng/mL (0.000-0.060); UREA NITROGEN 8 mg/dL (7-18)
[2016-11-03 05:55] VITALS: BP 104/67
--- NOTE | 2016-11-03 06:19 | NUR ---
VSS THIS AM. SR/SB WITH 1ST DEGREE AV BLOCK PER CM. PT DENIED ANY DISCOMFORT. NEEDS MET; WILL CONTINUE TO MONITOR.
--- NOTE | 2016-11-03 06:36 | NUR ---
GRACIELA ETIENNE. PT DECLINED. WOPES PLACED IN ROOM. INFORMED PT THAT [facility] AROUND 0900. PT STATES WILL DO SHORTLY.
[2016-11-03 08:05] VITALS: BP 130/61
--- NOTE | 2016-11-03 08:42 | NUR ---
PREOP MEDS ADMINISTERED AT THIS TIME. NO DISTRESS. PATIENTS MOTHER AT BEDSIDE.
--- NOTE | 2016-11-03 10:31 | NUR ---
RECEIVED REPORT FROM CRUZ FROM ZIPPER REPAIRER. PATIENT BACK SOON.
--- NOTE | 2016-11-03 10:42 | NUR ---
RECEIVED PATIENT FROM CUPOLA LINER. PATIENT WITH EYES CLOSED. EASILY AROUSED. DRESSING TO RIGHT GROIN CLEAN, DRY AND INTACT. NO S/S HEMATOMA FORMATION. BP 84/50. RESP EVEN AND UNLABORED. IV FLUIDS INFUSING ORDERED. CALL LIGHT WITHIN REACH.
--- NOTE | 2016-11-03 11:43 | NUR ---
RESTING WITH EYES CLOSED, EASILY AROUSED. FAMILY REMAINS AT BEDSIDE. NO S/S HEMATOMA FORMATION. PERIPHERAL PULSES PATENT. NO DISTRESS.
--- NOTE | 2016-11-03 17:58 | NUR ---
DISCHARGE NOTE: 1715 D/C INSTRUCTIONS AND D/C MEDICATION LIST REVIEWED WITH PT AND PT'S MOTHER AT THE BEDSIDE. PT AND MOTHER DENY ANY QUESTION OR CONCERNS. 1730 IV SITE, SALINE LOC, LEFT HAND D/C'D. PT TOLERATED WELL. HEART MONITOR REMOVED AND PT GOT DRESSED. 1735 PT TRANSPORTED TO HOSPITAL ENTRANCE VIA W/C. MOTHER TO TRANSPORT PT HOME VIA PRIVATE CAR.
== END 2016-11-03 17:35 | disposition home or self-care (01) ==
LOC: D.ER 10:08 → OBSVTIME 12:35 → D.M2 12:35
PROVIDERS: Emergency Medicine; ADMIT Internal Medicine Interventional Cardiology
DX: J44.1 Chronic obstructive pulmonary disease with (acute) exacerbation (principal); I10 Essential (primary) hypertension; I25.10 Atherosclerotic heart disease of native coronary artery without angina pectoris; Z95.1 Presence of aortocoronary bypass graft; E78.5 Hyperlipidemia, unspecified; I48.0 Paroxysmal atrial fibrillation; F31.9 Bipolar disorder, unspecified; E03.9 Hypothyroidism, unspecified

== ENCOUNTER → 2016-11-07 07:19 | Outpatient (CLI) | payer MEDICARE ==
[2016-11-02 13:38] VITALS: BMI 26.4
[~2016-11-07 07:19] MED LIST changes: +RANEXA1000 MG PO; +SINGULAIR10 MG PO; +SYNTHROID100 MCG PO
== END | disposition home or self-care (01) ==
LOC: D.RT 07:19
DX: J44.9 Chronic obstructive pulmonary disease, unspecified (principal)

== ENCOUNTER 2016-11-13 10:53 | Emergency (ER) | payer MEDICARE ==
[2016-11-02 13:38] VITALS: BMI 26.4
[2016-11-13 11:26] LABS: BASOPHILS 0.1 % (0-2); EOSINOPHILS 3.4 % (0-7); HEMATOCRIT 43.3 % (42.0-54.0); HEMOGLOBIN 14.6 g/dL (13.5-17.5); IMMATURE GRANULOCYTES 0.4 % (0-5); LYMPHOCYTES 13.8 % (15-50); MCH 30.5 pg (26.0-34.0); MCHC 33.7 g/dL (31.0-37.0); MCV 90.4 fL (80.0-100.0); MEAN PLATELET VOLUME 11.1 fL (7.4-10.4); MONOCYTES 8.8 % (2-11); NEUTROPHILS 73.5 % (40-80); PLATELET COUNT 150 10x3/uL (130-400); RBC 4.79 10x6/uL (4.20-6.10); RDW 13.5 % (11.5-14.5); WBC 9.9 10x3/uL (4.8-10.8)
[2016-11-13 11:43] LABS: ALBUMIN 3.6 g/dL (3.4-5.0); ANION GAP 11.6 mmol/L (8-16); BILIRUBIN - TOTAL 0.73 mg/dL (0.2-1.3); CALCIUM 9.6 mg/dL (8.5-10.1); CARBON DIOXIDE 28.2 mmol/L (21.0-32.0); CREATININE - SERUM 1.3 mg/dL (0.6-1.3); POTASSIUM - SERUM 3.8 mmol/L (3.5-5.1); PROTEIN - SERUM 7.3 g/dL (6.4-8.2)
[2016-11-13 13:08] LABS: APPEARANCE HAZY (CLEAR); BILIRUBIN NEGATIVE (NEGATIVE); COLOR DK YELLOW (YELLOW); GLUCOSE NEGATIVE (NEGATIVE); KETONE NEGATIVE (NEGATIVE); NITRITE NEGATIVE (NEGATIVE); PROTEIN NEGATIVE (NEGATIVE); SPECIFIC GRAVITY 1.015 (1.005-1.020); UROBILINOGEN NORMAL (NORMAL)
[2016-11-13 13:09] LABS: BACTERIA FEW /hpf (NONE SEEN); EPITHELIAL CELLS 0-5 /hpf (0-5); HYALINE CAST 0-5 /lpf (NONE SEEN); MUCUS <1+ /lpf (NONE SEEN); RED CELLS - URINE OCC /hpf (0-5); SPERMATOZOA PRESENT /hpf (NONE SEEN)
== END 2016-11-13 15:10 | disposition home or self-care (01) ==
LOC: D.ER 10:53
PROVIDERS: Emergency Medicine
DX: K57.92 Diverticulitis of intestine, part unspecified, without perforation or abscess without bleeding (principal)

== ENCOUNTER → 2017-06-06 12:07 | Outpatient (CLI) | payer MEDICARE ==
[2016-11-02 13:38] VITALS: BMI 26.4
== END | disposition home or self-care (01) ==
LOC: D.NM 12:07
DX: K52.9 Noninfective gastroenteritis and colitis, unspecified (principal)

== ENCOUNTER → 2018-07-13 11:11 | Outpatient (CLI) | payer MEDICARE ==
[2016-11-02 13:38] VITALS: BMI 26.4
== END | disposition home or self-care (01) ==
LOC: D.RAD 12-05 10:00 → D.RT 12-05 10:00 → D.RAD 12-05 11:00 → D.RT 11:00
PROVIDERS: ATTEND Internal Medicine Pulmonary Disease
DX: J44.9 Chronic obstructive pulmonary disease, unspecified (principal); J98.11 Atelectasis

== ENCOUNTER 2018-08-25 13:11 | Emergency (ER) | payer MEDICARE ==
[~2018-08-25] VITALS: Ht 185.4 cm; Wt 90.5 kg
[2018-08-25 13:18] VITALS: Ht 185.4 cm; Wt 90.5 kg
[2018-08-25] MEDS ORDERED: TORADOL10 MG PO (17:15)
[2018-08-25 17:45] VITALS: BP 118/61
== END 2018-08-25 17:45 | disposition home or self-care (01) ==
LOC: D.ER 13:11
DX: M54.5 Low back pain (principal); M54.6 Pain in thoracic spine; I48.91 Unspecified atrial fibrillation; J44.9 Chronic obstructive pulmonary disease, unspecified; W10.9XXA Fall (on) (from) unspecified stairs and steps, initial encounter

== ENCOUNTER → 2019-01-25 15:27 | Outpatient (CLI) | payer MEDICARE ==
[2018-08-25 13:18] VITALS: BMI 26.3
[~2019-01-25 15:27] MED LIST changes: +TORADOL10 MG PO
== END | disposition home or self-care (01) ==
LOC: D.RAD 15:27
PROVIDERS: ATTEND Pain Medicine Interventional Pain Medicine
DX: M46.82 Other specified inflammatory spondylopathies, cervical region (principal); M47.892 Other spondylosis, cervical region; G89.4 Chronic pain syndrome

== ENCOUNTER → 2019-03-12 12:47 | Outpatient (CLI) | payer MEDICARE ==
[2018-08-25 13:18] VITALS: BMI 26.3
== END | disposition home or self-care (01) ==
LOC: D.CT 03-10 09:30
PROVIDERS: ATTEND Pain Medicine Interventional Pain Medicine
DX: M54.2 Cervicalgia (principal); M47.892 Other spondylosis, cervical region; M47.812 Spondylosis without myelopathy or radiculopathy, cervical region; M54.9 Dorsalgia, unspecified; G89.4 Chronic pain syndrome; Z79.899 Other long term (current) drug therapy; Z79.891 Long term (current) use of opiate analgesic

== ENCOUNTER 2019-11-13 17:38 | Emergency (ER) | payer MEDICARE ==
[2019-11-13 18:01] VITALS: Ht 185.4 cm
[2019-11-13] MEDS ORDERED: HYDROCODON-ACE1 EA10 PO ×2 (20:23→22:35)
[2019-11-13 22:45] VITALS: BP 110/60
== END 2019-11-13 22:45 | disposition home or self-care (01) ==
LOC: D.ER 17:38
DX: S13.4XXA Sprain of ligaments of cervical spine, initial encounter (principal); V49.9XXA Car occupant (driver) (passenger) injured in unspecified traffic accident, initial encounter; M47.812 Spondylosis without myelopathy or radiculopathy, cervical region; Z95.5 Presence of coronary angioplasty implant and graft; I25.10 Atherosclerotic heart disease of native coronary artery without angina pectoris; J44.9 Chronic obstructive pulmonary disease, unspecified